=== PATIENT | male | born 1930 | race Caucasian/White ===

== ENCOUNTER 2018-04-13 10:09 | Inpatient (IN) | payer MEDICARE, OTHER ==
[2018-04-13 10:46] LABS: #Eosinphils 0.2 thou/uL (0.0-0.7); #Lymphocytes 0.6 thou/uL (1.20-3.40); #Neutrophils 10.7 thou/uL (1.40-6.50); %Basophils 0.1 % (0.0-1.0); %Eosinophils 1.9 % (0.0-10.0); %Lymphocytes 4.6 % (21.0-51.0); %Monocytes 7.8 % (0.0-10.0); %Neutrophils 85.6 % (42.0-75.0); Hemoglobin 12.7 g/dL (14.0-18.0); Mean Corpuscular Hemoglobin 31.9 pg (27.0-31.0); Mean Corpuscular Volume 99.5 fL (78.0-98.0); Mean Platelet Volume 9.1 fL (7.4-10.4); Platelet Count 225 thou/uL (130-400); RBC Distribution Width 12.8 % (11.5-14.5); Red Blood Cell (RBC) Count 3.98 mill/uL (4.70-6.10); White Blood Cell (WBC) Count 12.5 thou/uL (4.8-10.8)
[2018-04-13 10:50] LABS: INR-International Normal Ratio 1.1; Prothrombin Time 14.4 SEC (12.0-14.7)
[2018-04-13 11:06] LABS: ALT (SGPT) 15 U/L (8-55); AST (SGOT) 24 U/L (5-34); Albumin 3.9 g/dL (3.4-4.8); Alkaline Phosphatase 86 U/L (40-150); Anion Gap 16 mmol/L (10-20); BUN (Urea Nitrogen) 36 mg/dL (8.4-25.7); Bilirubin, Total 0.6 mg/dL (0.2-1.2); CK (CPK) 61 U/L (30-200); Calc. Creatinine Clearance 0 mL/min (70-130); Calcium 9.5 mg/dL (7.8-10.44); Carbon Dioxide 32 mmol/L (23-31); Chloride 97 mmol/L (98-107); Estimated GFR-MDRD 32; Globulin 2.9 g/dL (2.4-3.5); Glucose 318 mg/dL (83-110); Potassium 4.1 mmol/L (3.5-5.1); Protein, Total 6.8 g/dL (5.8-8.1); Sodium 141 mmol/L (136-145)
[2018-04-13 11:10] LABS: CKMB 4.3 ng/mL (0-6.6); Troponin I 0.061 ng/mL (< 0.028)
--- NOTE | 2018-04-13 11:29 | RAD ---
CHEST 1 VIEW: Date: 04/13/18 HISTORY: Atrial fibrillation. Chest pain. COMPARISON: 10/03/16. FINDINGS: Cardiac silhouette is magnified and upper limits of normal in size. Cardiac silhouette magnified and upper limits of normal in size. Pulmonary vasculature remains slightly engorged with mild bilateral p erihilar infiltrates. Minimal fluid right minor fissure. Mediastinum midline with aortic calcificatio n and postoperative changes. No evidence of pneumothorax. IMPRESSION: Mild pulmonary vascular congestion appears stable compared to the previous exam. POS: TITUS
[2018-04-13] MEDS ORDERED: Nitroglycerin 2% Ointment 1 INCH/1 GM Packet ONE (11:35)
[2018-04-13] MEDS ORDERED: Ondansetron ODT 4 MG TAB SL PRN (12:00)
[2018-04-13] MEDS ORDERED: Ondansetron HCl/PF 4 MG/2 ML Vial IVP PRN (12:00)
[2018-04-13] MEDS ORDERED: Acetaminophen 325 MG TAB PO PRN (12:00)
[2018-04-13] MEDS ORDERED: Diltiazem 125 MG/25 ML ONE (12:28)
[2018-04-13 14:47] VITALS: BMI 28.8
[2018-04-13] MEDS ORDERED: Aspirin 325 MG TAB PO SCH (15:00)
[2018-04-13 15:01] LABS: Troponin I 0.152 ng/mL (< 0.028)
[2018-04-13] MEDS ORDERED: Ondansetron ODT 4 MG TAB PO PRN (15:14)
[2018-04-13] MEDS ORDERED: Dextrose 50% Abboject 50 ML SYRINGE SLOW IVP PRN (15:45)
[2018-04-13] MEDS ORDERED: Dextrose 5% in Water 1,000 ML IV PRN (15:45)
[2018-04-13 17:29] LABS: Troponin I 0.455 ng/mL (< 0.028)
[2018-04-13] MEDS: HumaLOG 300 UNITS/3 ML VIAL SC PRN ×2 (17:34→21:15)
[2018-04-13] MEDS: Albuterol Sulfate 1.25 MG/3 ML NEB NEB SCH (18:55)
[2018-04-13] MEDS ORDERED: Nitroglycerin 2% Ointment 1 INCH/1 GM Packet TOP SCH (20:00)
[2018-04-13] MEDS ORDERED: Temazepam 15 MG CAP PO PRN (20:14)
[2018-04-13] MEDS ORDERED: Gabapentin 100 MG CAP PO SCH (21:00)
[2018-04-13] MEDS ORDERED: Tamsulosin HCl 0.4 MG CAP PO SCH (21:00)
[2018-04-13] MEDS ORDERED: ALPRAZolam 0.25 MG TAB PO SCH (21:00)
[2018-04-13] MEDS ORDERED: Docusate 100 MG CAP PO SCH (21:00)
--- NOTE | 2018-04-13 22:37 | HP ---
CHIEF COMPLAINT: Chest pain and shortness of breath. HISTORY OF PRESENT ILLNESS: This patient is an 87-year-old male with a history of significant avendaño ry artery disease, status post bypass grafting. Patient had a catheterization in [address] Thom reaves, which indicated extensive multi-ewiiaapaayp vessel disease with patent grafts. The ewiiaapaayp vessels were subtotally or totally occluded, but intervention could not be undertaken, because they were so highl y calcified. At that point, it was felt the patient was best medically managed. He was given subseq uent nitroglycerin spray and manage medically. The patient also reports that he had childhood asthma , but over the last few months and feels like he has been having some symptoms again. He is currentl y residing in [facility]. The patient reports his cough has been completely nonproductive. Patient reports that over the last 3 weeks, he has had some increasing shortness of breath. He has h ad some cough during that time as well. He reports that he does frequently have some intermittent wh eezing. He was originally receiving some breathing treatments but was not sure they were helping, so those were discontinued. However, over the last 2 days, his son indicates that they have been givin g them to him again. He is completely unsure if those have been helpful or not. This morning, the patient experienced an episode of chest pain radiating to his arms, neck, and jaw t hat he described as a 7/10 pain. It described the pain as "chest hurt." The pain is now completely resolved. In the emergency department, the patient did receive nitroglycerin and diltiazem for borde rline tachycardia with his atrial fibrillation. REVIEW OF SYSTEMS: Patient has reported mild sore throat, runny nose, and lightheadedness. He does admit to having a wheeze. He has had some constipation, some large stools which are difficult to pas s. Other than that, an 11-system review was negative except for those things mentioned in the histor y of present illness. Specifically, he is denying any fevers or chills. PAST MEDICAL HISTORY: Notable for the above-mentioned coronary artery disease, status post bypass gr afting with subsequent angina. He does have a history of diastolic congestive heart failure, fecal i mpactions, pulmonary edema, atrial fibrillation with an ablation performed in 2011. Patient was on C oumadin, but developed a subdural hematoma, so anticoagulation was discontinued. The patient did req uire a rupert hole to evacuate the hematoma. History of chronic obstructive pulmonary disease, diabete s mellitus, hypertension, hyperlipidemia, diverticulosis. He has chronic venous stasis, asthma, lunchroom attendant cuauhtemoc low back pain, chronic constipation, respiratory failure in 2012 requiring mechanical ventilation secondary to Haemophilus influenza pneumonia, history of anxiety and depression. PAST SURGICAL HISTORY: Patient has had coronary artery bypass graft, ablation for atrial flutter, ch olecystectomy, colonoscopy, and the above-mentioned rupert hole for the subdural hematoma. FAMILY HISTORY: No family history notable for coronary artery disease prematurely. SOCIAL HISTORY: Patient resides in the [facility]. He has no history of alcohol or drug abu se. His son is present. His son would be his surrogate decision maker. Patient reports that he wou ld like to be FULL CODE with full resuscitative efforts. PHYSICAL EXAMINATION: VITAL SIGNS: Temperature 98.2, pulse 99, respirations 24, O2 sat 97% on room air, BP is 130/69. GENERAL APPEARANCE: Age appropriate male. He is in no distress. He is awake, alert, oriented, plea chong, cooperative. CARDIOVASCULAR: His heart is irregular, borderline tachycardia. It is 2/6 murmur at the mitral posi tion. LUNGS: Currently have diffuse, mild expiratory wheeze. Fair air exchange. ABDOMEN: Soft, nontender, nondistended with positive bowel sounds. No masses, no organomegaly. EXTREMITIES: Warm and dry. There is 2+ edema to above the ankle and trace knee. NEUROLOGIC: Patient appears to be generally intact with no focal loss. SKIN: Warm and dry with no lesions. MUSCULOSKELETAL: Noted for the scar in the left parietal area, where the rupert hole was made. LABORATORY DATA: White count is 12.5, hemoglobin 12.7, MCV 99.5, platelets 225. PT is 14.4, INR is 1.1. Sodium 141, potassium 4.1, chloride 97, CO2 is 32, BUN 36, creatinine 2.0, glucose is 318. AST 24, ALT 15. Initial troponin was 0.061 with repeat of 0.152. Albumin is 3.9. Chest x-ray reveals mild pulmonary vascular congestion stable from previous exams. EKG reveals atrial fibrillation with rate of 105 beats per minute with bit of a wandering baseline and some nonspecific T-wave changes. IMPRESSION AND PLAN: 1. Cardiovascular, patient appears to have some atrial fibrillation with borderline rate. He was gi vamshi a dose of diltiazem in the emergency department. His rate still remains around 100. It is uncle ar if this might be related to the patient's symptoms of the shortness of breath and chest pain. He also has elevating troponin in the setting of known severe diffuse coronary artery disease. It is he avily calcified and not amenable to intervention. Patient is placed in observation. He will remain on telemetry. He will have nitro paste in place. We will continue to follow the troponin. We will consult Cardiology. Need to observe the patient's blood pressure. He may be a candidate for increas ing beta-blockade. 2. Pulmonary: Patient appears to have some wheezing present. His chest x-ray only shows some chron ic stable pulmonary edema. He is satting relatively well. He is coughing, but it is nonproductive. We will give the patient some nebulizer treatments to have available. This does not appear to be an infectious bronchitis at this time. Patient is on an VALERY inhibitor, but he has been on that for a l alisson while and that is unlikely to be the source. 3. Renal: Patient has some chronic renal insufficiency with a baseline creatinine of around 1.5. C urrently, his creatinine is 2. He is not fully prerenal in his indices. We will avoid giving him an y additional fluids, as he was afraid this may be simply poor perfusion from poor-pump function with tachycardia from atrial fibrillation. Patient does have a history of some congestive heart failure a nd has some peripheral edema now. I believe, it is concerning for possible volume overload quickly f orgets to aggressive. 4. History of congestive heart failure. Patient's most recent echocardiogram revealed an ejection f raction of 50%-55% with davn-mh-todmivxk aortic stenosis, vxgsjshc-bq-kohyqa mitral regurgitation. 5. Hyperglycemia. Patient's blood sugar was over 300. He is not on aggressive regimen to treat his blood sugars. May need to cover with some sliding scale. We will check a hemoglobin A1c. If his n umbers are high, this certainly could account for some dehydration as well. 6. Hypertension. Patient is on lisinopril, which is likely important for his afterload reduction. We will continue that. DISPOSITION: The patient's son would be a surrogate decision maker and he would like to continue to be FULL CODE.
[2018-04-14 00:32] LABS: Troponin I 1.819 ng/mL (< 0.028)
[2018-04-14 03:14] LABS: #Eosinphils 0.2 thou/uL (0.0-0.7); #Lymphocytes 0.6 thou/uL (1.20-3.40); #Monocytes 1.1 thou/uL (0.11-0.59); #Neutrophils 10.1 thou/uL (1.40-6.50); %Basophils 0.3 % (0.0-1.0); %Eosinophils 1.7 % (0.0-10.0); %Lymphocytes 4.6 % (21.0-51.0); %Monocytes 9.2 % (0.0-10.0); %Neutrophils 84.3 % (42.0-75.0); Hemoglobin 12.3 g/dL (14.0-18.0); Mean Corpuscular HGB CONC 32.2 g/dL (32.0-36.0); Mean Corpuscular Hemoglobin 31.5 pg (27.0-31.0); Mean Corpuscular Volume 97.7 fL (78.0-98.0); Mean Platelet Volume 8.7 fL (7.4-10.4); Platelet Count 226 thou/uL (130-400); RBC Distribution Width 12.8 % (11.5-14.5); Red Blood Cell (RBC) Count 3.89 mill/uL (4.70-6.10)
[2018-04-14 03:28] LABS: Hemoglobin A1c 7.6 % (4.0-6.0)
[2018-04-14 03:33] LABS: Anion Gap 15 mmol/L (10-20); BUN (Urea Nitrogen) 38 mg/dL (8.4-25.7); Calc. Creatinine Clearance 36 mL/min (70-130); Calcium 9.5 mg/dL (7.8-10.44); Carbon Dioxide 30 mmol/L (23-31); Chloride 99 mmol/L (98-107); Estimated GFR-MDRD 37; Glucose 167 mg/dL (83-110); Potassium 4.3 mmol/L (3.5-5.1); Sodium 140 mmol/L (136-145)
[2018-04-14 03:42] LABS: Troponin I 1.755 ng/mL (< 0.028)
[2018-04-14] MEDS: Albuterol Sulfate 1.25 MG/3 ML NEB NEB SCH ×3 (06:50→18:44)
[2018-04-14] MEDS: Lisinopril 2.5 MG TAB PO SCH (09:09)
[2018-04-14] MEDS: HumaLOG 300 UNITS/3 ML VIAL SC SCH ×3 (09:09→17:25)
[2018-04-14] MEDS: Aspirin 81 mg Enteric Coated Tablet PO SCH (09:09)
[2018-04-14] MEDS: Ferrous Sulfate 325 MG TAB PO SCH (09:09)
[2018-04-14] MEDS: Potassium Chloride 20 MEQ TAB PO SCH (09:09)
[2018-04-14] MEDS: traMADol HCl 50 MG TAB PO PRN (09:09)
[2018-04-14] MEDS: Docusate 100 MG CAP PO SCH ×2 (09:10→20:11)
[2018-04-14] MEDS: predniSONE 5 MG TAB PO SCH (09:10)
[2018-04-14] MEDS: Loratadine 10 MG TAB PO SCH (09:11)
[2018-04-14] MEDS: Polyethylene Glycol OPTH DROP 15 ML BOT EA EYE SCH ×4 (09:20→20:11)
--- NOTE | 2018-04-14 09:43 | PDOC.PN ---
- Subjective Encounter Start Date: 04/14/18 Encounter Start Time: 09:40 FEELS OK. EPISODIC SOB THAT RESOLVES QUICKLY. - Objective Resuscitation Status: Resuscitation Status FULL:Full Resuscitation Vital Signs & Weight: Vital Signs (12 hours) Temp Pulse Resp BP Pulse Ox 04/14/18 09:09 106 H 04/14/18 08:00 97.6 F 106 H 24 H 04/14/18 07:16 97.6 F 106 H 24 H 119/81 95 04/14/18 06:51 88 L 04/14/18 06:50 116 H 18 04/14/18 03:25 98.1 F 98 24 H 127/83 95 Weight Weight 195 lb 6 oz I&O: 04/13/18 04/14/18 04/15/18 06:59 06:59 06:59 Intake Total 760 Output Total 520 Balance 240 Result Diagrams: 04/14/18 03:06 04/14/18 03:06 Additional Labs: Accuchecks 04/13/18 04/13/18 20:57 16:34 POC Glucose 329 H 351 H Phys Exam - Physical Examination Constitutional: NAD Neck: no JVD, supple SCATTERED BASILAR RALES. NO WHEEZES. Cardiovascular: RRR, no significant murmur Gastrointestinal: soft, non-tender, no distention 2+ EDEMA OF THE FEET AND ANKLES. Psychiatric: normal affect Dx/Plan (1) NSTEMI (non-ST elevated myocardial infarction) Code(s): I21.4 - NON-ST ELEVATION (NSTEMI) MYOCARDIAL INFARCTION Status: Acute Plan: TROPONINS TRENDED POSITIVE. CARDIOLOGY ADDED RANEXA. WILL D/W CARDIOLOGY TODAY. COREG NOT ON HIS CURRENT MED LIST. ADDED BACK. (2) Afib Code(s): I48.91 - UNSPECIFIED ATRIAL FIBRILLATION Status: Acute Comment: BORDERLINE TACHYCARDIA. NOT ON COREG. RESTARTED IN HOPES FOR BETTER RATE CONTROL. (3) Asthma Code(s): J45.909 - UNSPECIFIED ASTHMA, UNCOMPLICATED Status: Acute Comment: UNUSUAL TO HAVE ONSET OF RAD AT THIS AGE. MOSTLY LIKELY "CARDIAC ASTHMA" OR COPD. CONTINUE WITH BRONCHODILATORS. (4) Acute on chronic diastolic (congestive) heart failure Code(s): I50.33 - ACUTE ON CHRONIC DIASTOLIC (CONGESTIVE) HEART FAILURE Status : Acute Comment: MODEST EVIDENCE OF DECOMPENSATION. MAY BE RELATED TO THE AFIB. NOW ON RANEXA AND RESTARTED COREG. (5) CAD (coronary artery disease) Code(s): I25.10 - ATHSCL HEART DISEASE OF [place] CORONARY ARTERY W/O ANG PCTRS Status: Chronic Comment: SEVERE [place] VESSEL DISEASE. PATENT GRAFTS. NOT A CANDIDATE FOR PERCUTANEOUS INTERVENTION DUE TO THE SEVERITY OF CALCIFICATION OF THE PLAQUES. (6) Diabetes type 2, controlled Code(s): E11.9 - TYPE 2 DIABETES MELLITUS WITHOUT COMPLICATIONS Status: Chronic Plan: ACCUCHECKS, SSI. - Plan * ABOVE.
[2018-04-14] MEDS ORDERED: Dextrose 50% Abboject 50 ML SYRINGE SLOW IVP PRN (09:51)
[2018-04-14] MEDS ORDERED: Dextrose 5% in Water 1,000 ML IV PRN (09:51)
[2018-04-14] MEDS: HumaLOG 300 UNITS/3 ML VIAL SC PRN ×2 (12:12→17:25)
[2018-04-14] MEDS ORDERED: Arformoterol 15 MCG/2 ML NEB NEB SCH (13:00)
[2018-04-14] MEDS ORDERED: Nitroglycerin 0.4 MG TAB (25 Tab Bottle) SL SCH (15:45)
--- NOTE | 2018-04-14 16:19 | CON ---
DATE OF CONSULTATION: 04/13/2018 HISTORY: Salvador Silveira is a pleasant 87-year-old white male prison resident who has been followed by Dr. Isaacs for many years. He underwent CABG x3 in 1999. Echocardiogram in 08/2016 revealed ejection fraction of 50%-55% with wlak-km-cuacwghe aortic stenosis and opfropqt-fx-nayuss mitral regurgitation. He now is sent to the emergency room for evaluation of chest discomfort. He describes a pressure sensation in either his chest, his left arm, or his jaw. He is very vague about how long these episodes last, but these would occur at rest. He becomes short of breath with these episodes and may have mild diaphoresis, but no nausea or vomiting. He has had slight elevation in his troponin I. Nitroglycerin seemed to relieve his discomfort. PAST MEDICAL HISTORY: Coronary artery disease, diabetes, hyperlipidemia, hypertension, paroxysmal atrial fibrillation (in sinus rhythm when he was last seen in the office in 09/2017), history of COPD. OPERATIONS: Repair of carpal tunnel syndrome, CABG, cholecystectomy, craniotomy for drainage of subdural hematoma. MEDICATIONS: Albuterol neb treatment p.r.n., Fosamax 70 every week, alprazolam 0.25 at bedtime, Brovana 15 mcg nebs, aspirin 81 daily, Dulcolax 10 mg per rectum p.r.n., carvedilol 3.125 b.i.d. Furosemide 40 mg b.i.d., gabapentin 200 at bedtime, NovoLog, lisinopril 2.5 daily, melatonin 6 mg at bedtime, nitroglycerin p.r.n., KCl 20 mEq daily, prednisone 5 mg daily, Flomax 0.4 daily. ALLERGIES: PENICILLINS. SOCIAL HISTORY: Lives at [facility]. He does not smoke. OPERATIONS: CABG, atrial flutter ablation, cholecystectomy, colonoscopy, drainage of subdural hematoma when on Coumadin. PHYSICAL EXAMINATION: VITAL SIGNS: 102/55, pulse is 101. HEENT: PERRL. NECK: Supple. CHEST: Clear. CARDIAC: S1, S2 normal without any S3 or S4. There is a 1/6 systolic murmur. ABDOMEN: Normal bowel sounds without tenderness, organomegaly. EXTREMITIES: Revealed 1+ pretibial edema. NEUROLOGIC: Grossly intact. SKIN: Warm and dry. LABORATORY DATA: EKG revealed atrial fibrillation with possible inferior and anteroseptal infarction. Hemoglobin 12.3, hematocrit 38.0, white count 12,000, platelets 226,000. INR 1.1. Sodium 140, potassium 4.3, chloride 99, carbon dioxide 30, BUN 38, creatinine 1.76, CK-MB 1.819. IMPRESSION: 1. Probable non-ST elevation myocardial infarction. 2. Chronic atrial fibrillation, although he apparently was in normal sinus rhythm when he was seen in the office in September. 3. Status post coronary artery bypass graft x3 with grafts patent in 2016 and progression of distal disease. 4. Hypertension. 5. Hypercholesterolemia. PLAN: Patient's dose will be optimized. With his renal insufficiency, he certainly would be at increased risk for any type of further cardiac evaluation. This was discussed with the patient. SUKUMAR
[2018-04-14] MEDS: Carvedilol 3.125 MG TAB PO SCH (17:25)
[2018-04-14] MEDS: Budesonide 0.5 MG/2 ML NEB NEB SCH (18:42)
[2018-04-14] MEDS: Arformoterol 15 MCG/2 ML NEB NEB SCH (18:44)
[2018-04-14] MEDS: Tamsulosin HCl 0.4 MG CAP PO SCH (20:11)
[2018-04-14] MEDS: ALPRAZolam 0.25 MG TAB PO SCH (20:11)
[2018-04-14] MEDS: Gabapentin 100 MG CAP PO SCH (20:11)
[2018-04-14] MEDS: Melatonin 3 MG TAB PO SCH (20:11)
[2018-04-14] MEDS ORDERED: Budesonide 0.5 MG/2 ML NEB NEB SCH (21:00)
[2018-04-15] MEDS: HumaLOG 300 UNITS/3 ML VIAL SC PRN (06:38)
[2018-04-15] MEDS: Albuterol Sulfate 1.25 MG/3 ML NEB NEB SCH ×3 (07:11→18:43)
[2018-04-15] MEDS: Budesonide 0.5 MG/2 ML NEB NEB SCH ×2 (07:11→18:45)
[2018-04-15] MEDS: Arformoterol 15 MCG/2 ML NEB NEB SCH ×2 (07:25→18:45)
[2018-04-15] MEDS: predniSONE 5 MG TAB PO SCH (09:04)
[2018-04-15] MEDS: Calcium Carbonate + Vit D 1 TAB PO SCH (09:05)
[2018-04-15] MEDS: Docusate 100 MG CAP PO SCH ×2 (09:05→20:26)
[2018-04-15] MEDS: Loratadine 10 MG TAB PO SCH (09:05)
[2018-04-15] MEDS: Lisinopril 2.5 MG TAB PO SCH (09:06)
[2018-04-15] MEDS: Aspirin 81 mg Enteric Coated Tablet PO SCH (09:06)
[2018-04-15] MEDS: Potassium Chloride 20 MEQ TAB PO SCH (09:06)
[2018-04-15] MEDS: HumaLOG 300 UNITS/3 ML VIAL SC SCH ×3 (09:06→17:27)
[2018-04-15] MEDS: Ferrous Sulfate 325 MG TAB PO SCH (09:06)
[2018-04-15] MEDS: Carvedilol 3.125 MG TAB PO SCH (09:15)
[2018-04-15] MEDS: Polyethylene Glycol OPTH DROP 15 ML BOT EA EYE SCH ×4 (09:16→20:26)
[2018-04-15] MEDS ORDERED: predniSONE 5 MG TAB PO SCH (12:45)
[2018-04-15] MEDS ORDERED: predniSONE 5 MG/5 ML UDCUP PO SCH (12:45)
--- NOTE | 2018-04-15 14:05 | PDOC.PN ---
- Subjective Encounter Start Date: 04/15/18 Encounter Start Time: 13:15 Doesn't too bad today. Still has some intermittent SOB. - Objective Resuscitation Status: Resuscitation Status DNR:Do Not Resuscitate Vital Signs & Weight: Vital Signs (12 hours) Temp Pulse Resp BP Pulse Ox 04/15/18 13:37 82/56 L 04/15/18 13:26 22 H 89/54 L 95 04/15/18 12:42 80 20 04/15/18 12:23 92/57 L 04/15/18 12:02 74 24 H 81/54 L 95 04/15/18 11:55 97.9 F 82 18 95 04/15/18 09:47 97.9 F 84 22 H 04/15/18 09:24 97.9 F 84 22 H 97/59 L 94 L 04/15/18 07:25 76 16 04/15/18 07:12 100 04/15/18 07:11 78 16 04/15/18 05:26 93 L 04/15/18 03:58 97.6 F 76 18 112/58 L 94 L I&O: 04/14/18 04/15/18 04/16/18 06:59 06:59 06:59 Intake Total 240 Output Total 400 Balance -160 Result Diagrams: 04/14/18 03:06 04/14/18 03:06 Additional Labs: Accuchecks 04/15/18 04/15/18 12:11 06:35 POC Glucose 176 H 226 H Phys Exam - Physical Examination Neck: no JVD, supple Respiratory: no wheezing, no rales, no rhonchi Occasionally has some upper airway wheezes. Cardiovascular: RRR, no significant murmur Gastrointestinal: soft, non-tender, no distention 2+ edema LE's Psychiatric: normal affect, A&O x 3 Dx/Plan (1) NSTEMI (non-ST elevated myocardial infarction) Code(s): I21.4 - NON-ST ELEVATION (NSTEMI) MYOCARDIAL INFARCTION Status: Acute Plan: Cardiology consulted. Patient has extensive CAD unamenable to further intervention. EF is now worse (20-25%). Ranexa was added. Coreg was added because of the tachycardia. Now he is hypotensive. Awaiting Dr. Isaacs's input tomorrow. (2) Afib Code(s): I48.91 - UNSPECIFIED ATRIAL FIBRILLATION Status: Acute Comment: BORDERLINE TACHYCARDIA IMPROVED SINCE COREG RESTARTED. (3) Asthma Code(s): J45.909 - UNSPECIFIED ASTHMA, UNCOMPLICATED Status: Acute Comment: UNUSUAL TO HAVE ONSET OF RAD AT THIS AGE. MOSTLY LIKELY "CARDIAC ASTHMA" OR COPD. CONTINUE WITH BRONCHODILATORS. (4) Acute on chronic diastolic (congestive) heart failure Code(s): I50.33 - ACUTE ON CHRONIC DIASTOLIC (CONGESTIVE) HEART FAILURE Status : Acute Comment: MODEST EVIDENCE OF DECOMPENSATION. MAY BE RELATED TO THE AFIB. NOW ON RANEXA AND RESTARTED COREG. (5) CAD (coronary artery disease) Code(s): I25.10 - ATHSCL HEART DISEASE OF [place] CORONARY ARTERY W/O ANG PCTRS Status: Chronic Comment: SEVERE [place] VESSEL DISEASE. PATENT GRAFTS. NOT A CANDIDATE FOR PERCUTANEOUS INTERVENTION DUE TO THE SEVERITY OF CALCIFICATION OF THE PLAQUES. (6) Diabetes type 2, controlled Code(s): E11.9 - TYPE 2 DIABETES MELLITUS WITHOUT COMPLICATIONS Status: Chronic - Plan * LONG DISCUSSION WITH PATIENT AND HIS SON. WILL MAKE DNR. SEE EVENT NOTE.
--- NOTE | 2018-04-15 14:11 | PDOC.EVN ---
Event Note - Event Note Event Note: TALKED WITH THE PATIENT AND HIS SON. WE HAVE REACHED A SITUATION THAT IS PROFOUNDLY DIFFICULT IN HIS CARE. HIS EF IS DECREASED AND THIS IS LIKELY SECONDARY TO THE CAD THAT IS NOT AMENABLE TO ANY FURTHER INTERVENTION. MEDS USED TO HELP HIM ARE NOW ALSO HURTING HIM IN THE FORM OF HYPOTENSION. HIS UOP HAS DROPPED OFF TODAY AND HIS BP WILL NOT ALLOW FOR DIURESIS. FLUIDS FOR BP WILL LIKELY JUST WORSEN CHF. PROGNOSIS IS POOR. DISCUSSED ADVANCED CARE PLANNING. PATIENT'S SON REMINDED HIM THAT THEY HAD DISCUSSED THIS ONCE BEFORE WHEN FACING SIMILAR CONVERSATION AND HE HAD DECIDED TO BE DNR. HE HAS DECIDED TO BE DNR NOW. DISCUSSED HOSPICE, BUT HE IS AMBIVALENT ABOUT THAT RIGHT NOW. WILL ALLOW DR. CANO TO SEE HIM TOMORROW AND HE MAY BE BETTER POSITIONED TO MAKE THAT DECISION THEN. TIME SPENT IN ACP 17 MIN.
[2018-04-15] MEDS: Melatonin 3 MG TAB PO SCH (20:23)
[2018-04-15] MEDS: Tamsulosin HCl 0.4 MG CAP PO SCH (20:25)
[2018-04-15] MEDS: Gabapentin 100 MG CAP PO SCH (20:25)
[2018-04-15] MEDS: ALPRAZolam 0.25 MG TAB PO SCH (20:26)
[2018-04-15] MEDS ORDERED: Albuterol Sulfate 1.25 MG/3 ML NEB ONE (23:33)
[2018-04-16 05:52] LABS: #Eosinphils 0.1 thou/uL (0.0-0.7); #Lymphocytes 0.5 thou/uL (1.20-3.40); #Monocytes 0.8 thou/uL (0.11-0.59); #Neutrophils 9.6 thou/uL (1.40-6.50); %Basophils 0.2 % (0.0-1.0); %Eosinophils 0.9 % (0.0-10.0); %Lymphocytes 4.6 % (21.0-51.0); %Monocytes 7.1 % (0.0-10.0); %Neutrophils 87.1 % (42.0-75.0); Mean Corpuscular HGB CONC 31.6 g/dL (32.0-36.0); Mean Corpuscular Volume 98.2 fL (78.0-98.0); Mean Platelet Volume 9.7 fL (7.4-10.4); Platelet Count 202 thou/uL (130-400); RBC Distribution Width 12.8 % (11.5-14.5); Red Blood Cell (RBC) Count 3.53 mill/uL (4.70-6.10)
[2018-04-16 05:57] LABS: Anion Gap 16 mmol/L (10-20); BUN (Urea Nitrogen) 72 mg/dL (8.4-25.7); Calc. Creatinine Clearance 21 mL/min (70-130); Calcium 8.3 mg/dL (7.8-10.44); Carbon Dioxide 29 mmol/L (23-31); Chloride 95 mmol/L (98-107); Estimated GFR-MDRD 20; Glucose 188 mg/dL (83-110); Potassium 5.7 mmol/L (3.5-5.1); Sodium 134 mmol/L (136-145)
[2018-04-16] MEDS: Albuterol Sulfate 1.25 MG/3 ML NEB NEB SCH ×3 (06:24→18:34)
[2018-04-16] MEDS: Budesonide 0.5 MG/2 ML NEB NEB SCH ×2 (06:24→18:35)
[2018-04-16] MEDS: Arformoterol 15 MCG/2 ML NEB NEB SCH ×2 (06:26→18:35)
[2018-04-16] MEDS: predniSONE 5 MG TAB PO SCH (09:11)
[2018-04-16] MEDS: HumaLOG 300 UNITS/3 ML VIAL SC SCH ×3 (09:11→17:46)
[2018-04-16] MEDS: Calcium Carbonate + Vit D 1 TAB PO SCH (09:12)
[2018-04-16] MEDS: Docusate 100 MG CAP PO SCH ×2 (09:13→20:31)
[2018-04-16] MEDS: Loratadine 10 MG TAB PO SCH (09:13)
[2018-04-16] MEDS: Potassium Chloride 20 MEQ TAB PO SCH (09:13)
[2018-04-16] MEDS: Aspirin 81 mg Enteric Coated Tablet PO SCH (09:13)
[2018-04-16] MEDS: Ferrous Sulfate 325 MG TAB PO SCH (09:13)
[2018-04-16] MEDS: Polyethylene Glycol OPTH DROP 15 ML BOT EA EYE SCH ×4 (09:13→20:31)
--- NOTE | 2018-04-16 09:44 | PRG ---
DATE OF SERVICE: 04/16/2018 SUBJECTIVE: Mr. Silveira is not short of breath, he just feels weak. No chest pain this morning. PHYSICAL EXAMINATION: VITAL SIGNS: Blood pressure 93/54, pulse rate 98 and regular. LUNGS: Clear. CARDIAC: Normal S1, normal S2. ABDOMEN: Soft, nontender. EXTREMITIES: There is no edema. ASSESSMENT: 1. Coronary artery disease. 2. Aortic stenosis, severe. 3. Renal failure. The estimated GFR is 20. 4. Hyperkalemia. Potassium 5.7. PLAN: 1. Stop potassium. 2. Stop Imdur. Blood pressure is too low. 3. He is off of VALERY inhibitors. 4. Probably the only therapy will be diuretic as well as aspirin. 5. I would strongly consider hospice to try to help improve quality of life and try to keep him from being rehospitalized if at all possible.
[2018-04-16] MEDS: HumaLOG 300 UNITS/3 ML VIAL SC PRN (11:46)
[2018-04-16] MEDS: ALPRAZolam 0.25 MG TAB PO SCH (20:30)
[2018-04-16] MEDS: Gabapentin 100 MG CAP PO SCH (20:30)
[2018-04-16] MEDS: Melatonin 3 MG TAB PO SCH (20:30)
[2018-04-16] MEDS: Tamsulosin HCl 0.4 MG CAP PO SCH (20:31)
[2018-04-17] MEDS: Budesonide 0.5 MG/2 ML NEB NEB SCH ×2 (06:17→18:38)
[2018-04-17] MEDS: Albuterol Sulfate 1.25 MG/3 ML NEB NEB SCH ×3 (06:17→18:37)
[2018-04-17] MEDS: Arformoterol 15 MCG/2 ML NEB NEB SCH ×2 (06:20→18:38)
[2018-04-17] MEDS: traMADol HCl 50 MG TAB PO PRN (06:34)
[2018-04-17] MEDS: Calcium Carbonate + Vit D 1 TAB PO SCH (08:58)
[2018-04-17] MEDS: Aspirin 81 mg Enteric Coated Tablet PO SCH (08:58)
[2018-04-17] MEDS: Docusate 100 MG CAP PO SCH (08:59)
[2018-04-17] MEDS: Loratadine 10 MG TAB PO SCH (08:59)
[2018-04-17] MEDS: predniSONE 5 MG TAB PO SCH (09:00)
[2018-04-17] MEDS: Ferrous Sulfate 325 MG TAB PO SCH (09:00)
[2018-04-17] MEDS: HumaLOG 300 UNITS/3 ML VIAL SC SCH ×3 (09:00→17:38)
[2018-04-17] MEDS: Polyethylene Glycol OPTH DROP 15 ML BOT EA EYE SCH ×3 (09:01→17:38)
--- NOTE | 2018-04-17 09:54 | PDOC.PN ---
- Subjective Encounter Start Date: 04/16/18 Encounter Start Time: 11:00 Elieser is seen today, alert and oriented. Pt is Agreeable for hospice at [place] as also recommeded by Cardioogy. - Objective Resuscitation Status: Resuscitation Status DNR:Do Not Resuscitate MAR Reviewed: Yes Vital Signs & Weight: Vital Signs (12 hours) Temp Pulse Resp BP Pulse Ox 04/17/18 07:48 96.3 F L 88 16 91/54 L 96 04/17/18 06:20 63 16 98 04/17/18 06:17 63 16 98 04/17/18 04:00 97.7 F 83 18 113/47 L 96 I&O: 04/16/18 04/17/18 04/18/18 06:59 06:59 06:59 Intake Total 492 500 Output Total 330 50 Balance 162 450 Result Diagrams: 04/16/18 04:58 04/16/18 04:58 Additional Labs: Accuchecks 04/16/18 04/16/18 04/16/18 21:06 16:39 11:18 POC Glucose 188 H 106 323 H Radiology Reviewed by me: Yes Phys Exam - Physical Examination HEENT: PERRLA, moist MMs Neck: no nodes, no JVD, supple Respiratory: no wheezing, no rales Cardiovascular: RRR, no significant murmur Gastrointestinal: soft, non-tender Musculoskeletal: no edema, pulses present Lymphatic: no nodes Psychiatric: normal affect Dx/Plan (1) Afib Code(s): I48.91 - UNSPECIFIED ATRIAL FIBRILLATION Status: Acute Comment: BORDERLINE TACHYCARDIA IMPROVED SINCE COREG RESTARTED. (2) Asthma Code(s): J45.909 - UNSPECIFIED ASTHMA, UNCOMPLICATED Status: Acute Comment: UNUSUAL TO HAVE ONSET OF RAD AT THIS AGE. MOSTLY LIKELY "CARDIAC ASTHMA" OR COPD. CONTINUE WITH BRONCHODILATORS. Stbale on NC. (3) NSTEMI (non-ST elevated myocardial infarction) Code(s): I21.4 - NON-ST ELEVATION (NSTEMI) MYOCARDIAL INFARCTION Status: Acute Comment: No Intervention offered by Cardiology. Hospice. (4) Acute on chronic diastolic (congestive) heart failure Code(s): I50.33 - ACUTE ON CHRONIC DIASTOLIC (CONGESTIVE) HEART FAILURE Status : Acute Comment: MODEST EVIDENCE OF DECOMPENSATION. MAY BE RELATED TO THE AFIB. NOW ON RANEXA AND RESTARTED COREG. Stbale. (5) Anxiety and depression Code(s): F41.9 - ANXIETY DISORDER, UNSPECIFIED; F32.9 - MAJOR DEPRESSIVE DISORDER, SINGLE EPISODE, UNSPECIFIED Status: Chronic (6) CAD (coronary artery disease) Code(s): I25.10 - ATHSCL HEART DISEASE OF [place] CORONARY ARTERY W/O ANG PCTRS Status: Chronic Comment: SEVERE [place] VESSEL DISEASE. PATENT GRAFTS. NOT A CANDIDATE FOR PERCUTANEOUS INTERVENTION DUE TO THE SEVERITY OF CALCIFICATION OF THE PLAQUES. (7) Hypertension Code(s): I10 - ESSENTIAL (PRIMARY) HYPERTENSION Status: Chronic Comment: Well controlled. Continue Home Meds. (8) Moderate aortic stenosis Code(s): I35.0 - NONRHEUMATIC AORTIC (VALVE) STENOSIS Status: Chronic - Plan cont current plan of care, PT/OT, forensic social worker, respiratory therapy, incentive spirometry, DVT proph w/lovenox Case management for Hospice bed placement. Review of Systems - Review of Systems Constitutional: negative: fever, chills, sweats, weakness, malaise, other Eyes: negative: Pain, Vision Change, Conjunctivae Inflammation, Eyelid Inflammation, Redness, Other ENT: negative: Ear Pain, Ear Discharge, Nose Pain, Nose Discharge, Nose Congestion, Mouth Pain, Mouth Swelling, Throat Pain, Throat Swelling, Other Respiratory: negative: Cough, Dry, Shortness of Breath, Hemoptysis, SOB with Excertion, Pleuritic Pain, Sputum, Wheezing Cardiovascular: negative: chest pain, palpitations, orthopnea, paroxysmal nocturnal dyspnea, edema, light headedness, other Gastrointestinal: negative: Nausea, Vomiting, Abdominal Pain, Diarrhea, Constipation, Melena, Hematochezia, Other Genitourinary: negative: Dysuria, Frequency, Incontinence, Hematuria, Retention , Other Musculoskeletal: negative: Neck Pain, Shoulder Pain, Arm Pain, Back Pain, Hand Pain, Leg Pain, Foot Pain, Other Skin: negative: Rash, Lesions, Alessandro, Bruising, Other - Medications/Allergies Allergies/Adverse Reactions: Allergies Allergy/AdvReac Type Severity Reaction Status Date / Time Penicillins Allergy Verified 04/13/18 14:44 Medications: Current Medications Albuterol Sulfate (Albuterol Sulfate) 1.25 mg NEB [id number] Last Admin: 04/17/18 06:17 Dose: 1.25 mg Alprazolam (Xanax) 0.25 mg PO [facility] Last Admin: 04/16/18 20:30 Dose: 0.25 mg Arformoterol Tartrate (Brovana) 15 mcg NEB BID-RT [facility] Last Admin: 04/17/18 06:20 Dose: 15 mcg Aspirin (Ecotrin) 81 mg PO DAILY [facility] Last Admin: 04/17/18 08:58 Dose: 81 mg Budesonide (Pulmicort Neb Solution) 0.5 mg NEB BID-RT [facility] Last Admin: 04/17/18 06:17 Dose: 0.5 mg Calcium/Vitamin D (Caltrate 600 + Vit D) 2 tab PO DAILY [facility] Last Admin: 04/17/18 08:58 Dose: 2 tab Cholecalciferol (Vitamin D3) 2,000 units PO DAILY [facility] Last Admin: 04/17/18 08:58 Dose: 2,000 units Dextrose/Water (Dextrose 50%) 25 gm SLOW IVP PRN PRN PRN Reason: Hypoglycemia Docusate Sodium (Colace) 100 mg PO BID [facility] Last Admin: 04/17/18 08:59 Dose: 100 mg Ferrous Sulfate (Feosol) 325 mg PO DAILY [facility] Last Admin: 04/17/18 09:00 Dose: 325 mg Gabapentin (Neurontin) 200 mg PO [facility] Last Admin: 04/16/18 20:30 Dose: 200 mg Glucagon (Glucagon) 1 mg IM PRN PRN PRN Reason: Hypoglycemia Dextrose/Water (D5w) 1,000 mls @ 0 mls/hr IV .Q0M PRN; As Directed PRN Reason: Hypoglycemia Insulin Human Lispro (Humalog) 0 units SC .MILD SLIDING SCALE PRN PRN Reason: Mild Correctional Scale Last Admin: 04/16/18 11:46 Dose: 5 unit Insulin Human Lispro (Humalog) 5 units SC 1200 [facility] Last Admin: 04/16/18 11:46 Dose: 5 units Insulin Human Lispro (Humalog) 5 units SC 1700 [facility] Last Admin: 04/16/18 17:46 Dose: Not Given Insulin Human Lispro (Humalog) 8 units SC QAM [facility] Last Admin: 04/17/18 09:00 Dose: 8 units Loratadine (Claritin) 10 mg PO DAILY [facility] Last Admin: 04/17/18 08:59 Dose: 10 mg Melatonin (Melatonin) 6 mg PO [facility] Last Admin: 04/16/18 20:30 Dose: 6 mg Nitroglycerin (Nitrostat) 0.4 mg SL Q5MIN [facility] Ondansetron HCl (Zofran Odt) 4 mg PO Q6H PRN PRN Reason: Nausea/Vomiting Pantoprazole Sodium (Protonix) 40 mg PO DAILY [facility] Last Admin: 04/17/18 08:59 Dose: 40 mg Prednisone (Prednisone) 5 mg PO QAM-WM [facility] Last Admin: 04/17/18 09:00 Dose: 5 mg Propylene Glycol (Systane Opth Drop 15ml Bot) 1 drop EA EYE QID [facility] Last Admin: 04/17/18 09:01 Dose: Not Given Ranolazine (Ranexa) 500 mg PO BID [facility] Last Admin: 04/17/18 08:59 Dose: 500 mg Sodium Chloride (Flush - Normal Saline) 10 ml IVF PRN PRN PRN Reason: Saline Flush Last Admin: 04/13/18 20:25 Dose: 10 ml Tamsulosin HCl (Flomax) 0.4 mg PO HS [facility] Last Admin: 04/16/18 20:31 Dose: 0.4 mg Temazepam (Restoril) 15 mg PO HS PRN PRN Reason: Insomnia Tramadol HCl (Ultram) 50 mg PO BIDPRN PRN PRN Reason: Pain Last Admin: 04/17/18 06:34 Dose: 50 mg
--- NOTE | 2018-04-17 10:24 | PRG ---
DATE OF SERVICE: 04/17/2018 SUBJECTIVE: Mr. Silveira is unable to void. He is quite a bit of discomfort. PHYSICAL EXAMINATION: VITAL SIGNS: His blood pressure 90/50, pulse 88 irregular. LUNGS: Clear. CARDIAC: Irregularly irregular. ABDOMEN: Soft, nontender. ASSESSMENT: 1. Aortic stenosis. 2. Coronary artery disease. 3. Chronic atrial fibrillation. PLAN: 1. The patient may need to have urinary catheterization. 2. He is on aspirin. 3. He is on ranolazine. 4. Other medicines have been discontinued. Consideration for hospice is being given.
[2018-04-17] MEDS: HumaLOG 300 UNITS/3 ML VIAL SC PRN (12:04)
--- NOTE | 2018-04-17 14:11 | PDOC.PN ---
- Subjective Encounter Start Date: 04/17/18 Encounter Start Time: 11:00 Patient is seen today, alert and oriented. Pt is worried about poor urine output , Explained to Son and patient, that his heart is failing and not produceing blood flow to kidney. Waiitng on Hospice arrnagement. - Objective Resuscitation Status: Resuscitation Status DNR:Do Not Resuscitate MAR Reviewed: Yes Vital Signs & Weight: Vital Signs (12 hours) Temp Pulse Resp BP Pulse Ox 04/17/18 11:34 69 18 98 04/17/18 07:48 96.3 F L 88 16 91/54 L 96 04/17/18 06:20 63 16 98 04/17/18 06:17 63 16 98 04/17/18 04:00 97.7 F 83 18 113/47 L 96 I&O: 04/16/18 04/17/18 04/18/18 06:59 06:59 06:59 Intake Total 492 500 Output Total 330 50 Balance 162 450 Result Diagrams: 04/16/18 04:58 04/16/18 04:58 Additional Labs: Accuchecks 04/17/18 04/16/18 04/16/18 10:31 21:06 16:39 POC Glucose 330 H 188 H 106 Radiology Reviewed by me: Yes Phys Exam - Physical Examination HEENT: PERRLA, moist MMs Neck: no nodes, no JVD Respiratory: no wheezing, no rales Cardiovascular: RRR, no significant murmur Gastrointestinal: soft, non-tender Musculoskeletal: no edema, pulses present Neurological: non-focal, normal sensation Dx/Plan (1) Afib Code(s): I48.91 - UNSPECIFIED ATRIAL FIBRILLATION Status: Acute Comment: BORDERLINE TACHYCARDIA IMPROVED SINCE COREG RESTARTED. (2) Asthma Code(s): J45.909 - UNSPECIFIED ASTHMA, UNCOMPLICATED Status: Acute Comment: UNUSUAL TO HAVE ONSET OF RAD AT THIS AGE. MOSTLY LIKELY "CARDIAC ASTHMA" OR COPD. CONTINUE WITH BRONCHODILATORS. Stbale on NC. (3) NSTEMI (non-ST elevated myocardial infarction) Code(s): I21.4 - NON-ST ELEVATION (NSTEMI) MYOCARDIAL INFARCTION Status: Acute Comment: No Intervention offered by Cardiology. Hospice. (4) Acute on chronic diastolic (congestive) heart failure Code(s): I50.33 - ACUTE ON CHRONIC DIASTOLIC (CONGESTIVE) HEART FAILURE Status : Acute Comment: severe decompensation with EF 20-25 %, will continue to monitor. leonatnav on hospice placement. (5) Anxiety and depression Code(s): F41.9 - ANXIETY DISORDER, UNSPECIFIED; F32.9 - MAJOR DEPRESSIVE DISORDER, SINGLE EPISODE, UNSPECIFIED Status: Chronic (6) CAD (coronary artery disease) Code(s): I25.10 - ATHSCL HEART DISEASE OF [place] CORONARY ARTERY W/O ANG PCTRS Status: Chronic Comment: SEVERE [place] VESSEL DISEASE. PATENT GRAFTS. NOT A CANDIDATE FOR PERCUTANEOUS INTERVENTION DUE TO THE SEVERITY OF CALCIFICATION OF THE [place]. (7) Hypertension Code(s): I10 - ESSENTIAL (PRIMARY) HYPERTENSION Status: Chronic Comment: Well controlled. Continue Home Meds. (8) Moderate aortic stenosis Code(s): I35.0 - NONRHEUMATIC AORTIC (VALVE) STENOSIS Status: Chronic - Plan cont current plan of care, plan discussed w/ family, social welfare administrator, respiratory therapy, incentive spirometry, DVT proph w/lovenox * . Review of Systems - Review of Systems Eyes: negative: Pain, Vision Change, Conjunctivae Inflammation, Eyelid Inflammation, Redness, Other ENT: negative: Ear Pain, Ear Discharge, Nose Pain, Nose Discharge, Nose Congestion, Mouth Pain, Mouth Swelling, Throat Pain, Throat Swelling, Other Respiratory: Shortness of Breath, SOB with Excertion, Wheezing Cardiovascular: negative: chest pain, palpitations, orthopnea, paroxysmal nocturnal dyspnea, edema, light headedness, other Gastrointestinal: negative: Nausea, Vomiting, Abdominal Pain, Diarrhea, Constipation, Melena, Hematochezia, Other Genitourinary: Other (worried about No urine.) - Medications/Allergies Allergies/Adverse Reactions: Allergies Allergy/AdvReac Type Severity Reaction Status Date / Time Penicillins Allergy Verified 04/13/18 14:44 Medications: Current Medications Albuterol Sulfate (Albuterol Sulfate) 1.25 mg NEB [id number] [facility] Last Admin: 04/17/18 11:34 Dose: 1.25 mg Alprazolam (Xanax) 0.25 mg PO HS [facility] Last Admin: 04/16/18 20:30 Dose: 0.25 mg Arformoterol Tartrate (Brovana) 15 mcg NEB BID-RT [facility] Last Admin: 04/17/18 06:20 Dose: 15 mcg Aspirin (Ecotrin) 81 mg PO DAILY [facility] Last Admin: 04/17/18 08:58 Dose: 81 mg Budesonide (Pulmicort Neb Solution) 0.5 mg NEB BID-RT [facility] Last Admin: 04/17/18 06:17 Dose: 0.5 mg Calcium/Vitamin D (Caltrate 600 + Vit D) 2 tab PO DAILY [facility] Last Admin: 04/17/18 08:58 Dose: 2 tab Cholecalciferol (Vitamin D3) 2,000 units PO DAILY [facility] Last Admin: 04/17/18 08:58 Dose: 2,000 units Dextrose/Water (Dextrose 50%) 25 gm SLOW IVP PRN PRN PRN Reason: Hypoglycemia Docusate Sodium (Colace) 100 mg PO BID [facility] Last Admin: 04/17/18 08:59 Dose: 100 mg Ferrous Sulfate (Feosol) 325 mg PO DAILY [facility] Last Admin: 04/17/18 09:00 Dose: 325 mg Gabapentin (Neurontin) 200 mg PO [facility] Last Admin: 04/16/18 20:30 Dose: 200 mg Glucagon (Glucagon) 1 mg IM PRN PRN PRN Reason: Hypoglycemia Dextrose/Water (D5w) 1,000 mls @ 0 mls/hr IV .Q0M PRN; As Directed PRN Reason: Hypoglycemia Insulin Human Lispro (Humalog) 0 units SC .MILD SLIDING SCALE PRN PRN Reason: Mild Correctional Scale Last Admin: 04/17/18 12:04 Dose: 5 unit Insulin Human Lispro (Humalog) 5 units SC 1200 [facility] Last Admin: 04/17/18 12:02 Dose: 5 units Insulin Human Lispro (Humalog) 5 units SC 1700 [facility] Last Admin: 04/16/18 17:46 Dose: Not Given Insulin Human Lispro (Humalog) 8 units SC QAM [facility] Last Admin: 04/17/18 09:00 Dose: 8 units Loratadine (Claritin) 10 mg PO DAILY [facility] Last Admin: 04/17/18 08:59 Dose: 10 mg Melatonin (Melatonin) 6 mg PO HS [facility] Last Admin: 04/16/18 20:30 Dose: 6 mg Nitroglycerin (Nitrostat) 0.4 mg SL Q5MIN [facility] Ondansetron HCl (Zofran Odt) 4 mg PO Q6H PRN PRN Reason: Nausea/Vomiting Pantoprazole Sodium (Protonix) 40 mg PO DAILY [facility] Last Admin: 04/17/18 08:59 Dose: 40 mg Prednisone (Prednisone) 5 mg PO QAM-WM [facility] Last Admin: 04/17/18 09:00 Dose: 5 mg Propylene Glycol (Systane Opth Drop 15ml Bot) 1 drop EA EYE QID [facility] Last Admin: 04/17/18 12:06 Dose: Not Given Ranolazine (Ranexa) 500 mg PO BID [facility] Last Admin: 04/17/18 08:59 Dose: 500 mg Sodium Chloride (Flush - Normal Saline) 10 ml IVF PRN PRN PRN Reason: Saline Flush Last Admin: 04/13/18 20:25 Dose: 10 ml Tamsulosin HCl (Flomax) 0.4 mg PO HS [facility] Last Admin: 04/16/18 20:31 Dose: 0.4 mg Temazepam (Restoril) 15 mg PO HS PRN PRN Reason: Insomnia Tramadol HCl (Ultram) 50 mg PO BIDPRN PRN PRN Reason: Pain Last Admin: 04/17/18 06:34 Dose: 50 mg
[2018-04-17 15:18] VITALS: TEMP 97.7
[2018-04-17 17:36] VITALS: BP 87/50
[2018-04-17] MEDS ORDERED: Sodium Chloride 0.9% 10 ML ONE (19:21)
== END 2018-04-17 20:30 | DRG 280 ==
LOC: ERS 10:09 → OBSVTOIN 12:50 → UNDOADMOB 12:50 → INTOOBSV 12:50 → 2SW 12:50 → OBSVTOIN 04-14 20:58 → 2SW 04-15 07:55 → 2NO 04-15 07:55
PROVIDERS: ADMIT Internal Medicine; ATTEND Internal Medicine
DX: I21.4 Non-ST elevation (NSTEMI) myocardial infarction (principal); I50.33 Acute on chronic diastolic (congestive) heart failure; Z66 Do not resuscitate; J45.909 Unspecified asthma, uncomplicated; F41.8 Other specified anxiety disorders; I25.10 Atherosclerotic heart disease of native coronary artery without angina pectoris; I11.0 Hypertensive heart disease with heart failure; I35.0 Nonrheumatic aortic (valve) stenosis; I48.2 Chronic atrial fibrillation; E87.5 Hyperkalemia; N19 Unspecified kidney failure; J44.9 Chronic obstructive pulmonary disease, unspecified; Z95.1 Presence of aortocoronary bypass graft; E78.5 Hyperlipidemia, unspecified; Z88.0 Allergy status to penicillin; E78.00 Pure hypercholesterolemia, unspecified; E11.65 Type 2 diabetes mellitus with hyperglycemia
CPT/HCPCS: 36415; 36416; 71045; 80048; 80053; 80061; 82553; 83036; 84484; 85025; 85610; 85730; 93005; 93306; 94640; 94760; 96374; A4216; J7626